=== PATIENT | female | born 1965 | race American Indian/Alaskan Native ===

== ENCOUNTER 2019-10-14 10:21 | Outpatient (CLI) | payer OTHER ==
--- NOTE | 2019-10-14 11:11 | Mammography Report ---
DIGITAL SCREENING MAMMOGRAM WITH CAD, 10/14/2019 INDICATION: Routine screening mammography. TECHNIQUE: Digital bilateral 2D mammography was obtained in the craniocaudal and mediolateral obliq ue projections. This examination was interpreted with the benefit of Computer-Aided Detection analysi s. COMPARISON: No priors. This is a baseline mammogram. FINDINGS: Breast Density: There are scattered areas of fibroglandular density. There is no evidence of dominant mass, suspicious calcifications or architectural distortion in the l eft breast. There is a small focal asymmetry in the anterior right breast at approximately 9:00. I pang spect this may represent overlapping fibroglandular tissue, but further evaluation with spot compress ion imaging is suggested. IMPRESSION: Right breast small focal asymmetry at 9:00. Recommend further evaluation with spot compre ssion imaging. If asymmetry persists, ultrasound will also be required at that time. Follow up recommendation: Right breast spot compression views with possible right breast ultrasound. Category 0: Incomplete. Needs additional imaging evaluation and/or prior mammograms for comparison. A "normal" or negative report should not discourage follow up or biopsy of a clinically significant f inding. A written summary of these findings will be mailed to the patient. The patient will be entered into a mammography reporting system which will generate a reminder letter for the patient's next appointmen t at the appropriate interval. The [employer] recommends yearly mammograms starting at age 40 and continuing as l tavia as a woman is in good health. Breast MRI is recommended for women with an approximate 20-25% or greater lifetime risk of breast cancer, including women with a strong family history of breast or ova timothy cancer or who have been treated for Hodgkin's disease. Signer Name: Tina Hoover MD Signed: 10/14/2019 11:06 AM Workstation Name: [email or web address]
== END 2019-10-14 10:22 | disposition home or self-care (01) ==
LOC: SPVWC 10:21
PROVIDERS: ATTEND Surgery
DX: Z12.31 Encounter for screening mammogram for malignant neoplasm of breast (principal); N64.89 Other specified disorders of breast
CPT/HCPCS: 77067

== ENCOUNTER 2019-10-21 08:52 | Outpatient (CLI) | payer OTHER ==
--- NOTE | 2019-10-21 09:48 | Mammography Report ---
DIGITAL DIAGNOSTIC MAMMOGRAM WITH CAD, 10/21/2019 INDICATION: RIGHT BREAST ASYMMETRY TECHNIQUE: Digital right mammographic imaging was performed. Spot compression views were obtained. This examination was interpreted with the benefit of Computer-aided Detection analysis. COMPARISON: 10/14/2019 FINDINGS: Breast Density: There are scattered areas of fibroglandular density. There is no evidence of dominant mass, suspicious calcifications or architectural distortion in the r ight breast. The asymmetric density in the right breast did not persist with spot compression imaging . IMPRESSION: Follow up recommendation: Routine yearly BI-RADS Category 1: Negative. A "normal" or negative report should not discourage follow up or biopsy of a clinically significant f inding. A written summary of these findings will be mailed to the patient. The patient will be entered into a mammography reporting system which will generate a reminder letter for the patient's next appointmen t at the appropriate interval. According to the [employer], yearly mammograms are recommended starting at age 40 and continuing as long as a woman is in good health. Breast MRI is recommended for women with an phylicia roximately 20-25% or greater lifetime risk of breast cancer, including women with a strong family his tory of breast or ovarian cancer and women who have been treated for Hodgkin's disease. Signer Name: Evan Green MD Signed: 10/21/2019 9:44 AM Workstation Name: [id number]
== END 2019-10-21 08:53 | disposition home or self-care (01) ==
LOC: SPVWC 08:52
PROVIDERS: ATTEND Surgery
DX: N64.89 Other specified disorders of breast (principal)

== ENCOUNTER 2020-10-14 09:02 | Outpatient (CLI) | payer BC ==
--- NOTE | 2020-10-14 10:24 | Mammography Report ---
DIGITAL SCREENING MAMMOGRAM WITH CAD, 10/14/2020 INDICATION: Routine screening mammography. TECHNIQUE: Digital bilateral 2D mammography was obtained in the craniocaudal and mediolateral obliq ue projections. This examination was interpreted with the benefit of Computer-Aided Detection analysi s. COMPARISON: 10/14/2019 FINDINGS: Breast Density: There are scattered areas of fibroglandular density. There is no evidence of dominant mass, suspicious calcifications or architectural distortion in eithe r breast. IMPRESSION: Follow up recommendation: Routine yearly BI-RADS Category 1: Negative. A "normal" or negative report should not discourage follow up or biopsy of a clinically significant f inding. A written summary of these findings will be mailed to the patient. The patient will be entered into a mammography reporting system which will generate a reminder letter for the patient's next appointmen t at the appropriate interval. The [employer] recommends yearly mammograms starting at age 40 and continuing as l tavia as a woman is in good health. Breast MRI is recommended for women with an approximate 20-25% or greater lifetime risk of breast cancer, including women with a strong family history of breast or ova timothy cancer or who have been treated for Hodgkin's disease. Signer Name: Tiago Anderson MD Signed: 10/14/2020 10:20 AM Workstation Name: [email or web address]
== END 2020-10-14 09:03 | disposition home or self-care (01) ==
LOC: SPVWC 09:02
PROVIDERS: ATTEND Surgery
DX: Z12.31 Encounter for screening mammogram for malignant neoplasm of breast (principal)
CPT/HCPCS: 77067